=== PATIENT | male | born 1980 | race African-American/Black ===

== ENCOUNTER 2018-07-20 10:30 | Emergency (ER) | payer OTHER ==
[~2018-07-20] VITALS: Ht 170.2 cm; Wt 82.0 kg
[~2018-07-20 10:30] MED LIST: humolog; lantus
[2018-07-20] MEDS ORDERED: ACETAMINOPHEN 325MG TABLET PO STA (11:51)
[2018-07-20] MEDS ORDERED: VANCOMYCIN 1 G PREMIX 200 ML IV ONE (12:00)
[2018-07-20] MEDS ORDERED: SODIUM CHLORIDE 0.9% 1000ML BAG (SEPSIS BOLUS) IV ONE (12:00)
[2018-07-20] MEDS ORDERED: PIPERACILLIN/TAZ 3.375G PREMIX 50 ML IV ONE (12:00)
[2018-07-20 12:23] LABS: BASOPHILS % 1.1 % (0.0-2.0); EOSINOPHILS % 0.4 % (0.0-5.0); HEMATOCRIT. 40.1 % (42.0-52.0); HEMOGLOBIN. 13.1 g/dL (14.0-18.0); MEAN CORPUSCULAR HEMOGLOBIN 29.1 pg (28.0-32.0); MEAN PLATELET VOLUME 10.7 fl (7.4-10.4); MONOCYTES % 6.6 % (2.0-8.0); NEUTROPHILS % 79.9 % (40.0-76.0); PLATELET 210 x1000/uL (130-400); RED CELL DISTRIBUTION WIDTH 13.7 % (11.6-14.6)
[2018-07-20 12:30] LABS: CHLORIDE 101 mEq/L (98-107)
[2018-07-20 12:36] LABS: INR 1.1; PROTHROMBIN TIME 11.2 sec (9.6-11.0)
[2018-07-20] MEDS ORDERED: LIDOCAINE HCL/EPINEPHRINE 1%-EPI 1:100,000 20 ML VIAL INFIL ONE (13:00)
[2018-07-20 14:21] VITALS: BP 130/76
== END 2018-07-20 14:27 | disposition home or self-care (01) ==
LOC: ER 10:30 → CANBEDREQ 15:55
DX: L03.113 Cellulitis of right upper limb (principal); L02.413 Cutaneous abscess of right upper limb; D72.829 Elevated white blood cell count, unspecified; E11.9 Type 2 diabetes mellitus without complications; Z91.14 Patient's other noncompliance with medication regimen
CPT/HCPCS: 36415; 71045; 80053; 83605; 84145; 84484; 85025; 85610; 87040; 93005; 96365; 96368; 99284; J2543; J3370; J3490; J7030; Z7610

== ENCOUNTER 2019-01-04 19:03 | Emergency (ER) | payer OTHER ==
[~2019-01-04] VITALS: Ht 170.2 cm; Wt 85.0 kg
[2019-01-04 21:17] VITALS: BP 142/99
[2019-01-04] MEDS ORDERED: IBUPROFEN 800MG TABLET PO ONE ×3 (22:30→22:45)
[2019-01-04] MEDS ORDERED: IBUPROFEN 600MG TABLET PO STA (22:42)
== END 2019-01-04 22:35 | disposition home or self-care (01) ==
LOC: ER 19:03
DX: L03.012 Cellulitis of left finger (principal); R03.0 Elevated blood-pressure reading, without diagnosis of hypertension
CPT/HCPCS: 99281

== ENCOUNTER 2022-10-07 11:09 | Emergency (ER) | payer MEDICAID, OTHER ==
[~2022-10-07] VITALS: Ht 170.2 cm; Wt 89.0 kg
[2022-10-07 11:11] VITALS: BP 159/92; PULSE 103; RESP 20; O2SAT 99
[2022-10-07] MEDS ORDERED: ACETAMINOPHEN 325MG TABLET PO NR (11:30)
[2022-10-07 11:45] VITALS: TEMP 100.4
[2022-10-07] MEDS ORDERED: [UNRECOGNIZED DRUG - CODE] MT (12:22)
[2022-10-07] MEDS ORDERED: TOPUD MT (12:22)
== END 2022-10-07 12:45 | disposition home or self-care (01) ==
LOC: ER 11:09
DX: U07.1 COVID-19 (principal); E11.9 Type 2 diabetes mellitus without complications; I10 Essential (primary) hypertension
CPT/HCPCS: 99283; 87426; 87804 ×2; C9803